=== PATIENT | male | born 1975 | race Caucasian/White ===

== ENCOUNTER 2016-10-25 20:57 | Inpatient (IN) | payer SELFPAY ==
[2016-10-25] MEDS ORDERED: ONDANSETRON 4 MG TAB.RAPDIS PO ONE (21:11)
--- NOTE | 2016-10-25 21:12 | ER Document Report ---
ED Medical Screen (RME) - General Chief Complaint: Abdominal Pain Stated Complaint: ABDOMINAL PAIN Mode of Arrival: Ambulatory Information source: Patient Notes: Patient presents to the emergency department with history of pancreatitis. Patient reports he's been drinking pretty heavily for the past couple months and recently quit on Sunday. He reports nausea vomiting abdominal pain. I have greeted and performed a rapid initial assessment of this patient. A comprehensive ED assessment and evaluation of the patient, analysis of test results and completion of the medical decision making process will be conducted by additional ED providers. Physical Exam - Vital signs Vitals: Temp Pulse Resp BP Pulse Ox 98.0 F 67 20 124/88 H 99 10/25/16 21:04 10/25/16 21:04 10/25/16 21:04 10/25/16 21:04 10/25/16 21:04 Course - Vital Signs Vital signs: Temp Pulse Resp BP Pulse Ox 98.0 F 67 20 124/88 H 99 10/25/16 21:04 10/25/16 21:04 10/25/16 21:04 10/25/16 21:04 10/25/16 21:04
[2016-10-25 22:11] LABS: ABSOLUTE LYMPHOCYTES (AUTO) 1.9 10^3/uL (0.5-4.7); ABSOLUTE MONOCYTES (AUTO) 1.1 10^3/uL (0.1-1.4); ABSOLUTE NEUT (AUTO) 6.3 10^3/uL (1.7-8.2); BASOPHILS % (AUTO) 0.3 % (0-2); EOSINOPHILS % (AUTO) 0.2 % (0-6); HEMOGLOBIN 16.5 g/dL (13.5-17.0); HGB HCT DIFFERENCE 0.5; LYMPHOCYTES % (AUTO) 20.4 % (13-45); MEAN CORPUSCULAR HEMOGLOBIN 30.6 pg (27.0-33.4); MEAN CORPUSCULAR HGB CONC 33.6 g/dL (32.0-36.0); MEAN CORPUSCULAR VOLUME 91 fl (80-97); MONOCYTES % (AUTO) 11.6 % (3-13); RED BLOOD COUNT 5.38 10^6/uL (4.35-5.55); RED CELL DISTRIBUTION WIDTH 14.2 % (11.5-14.0); SEGMENTED NEUTROPHILS % (AUTO) 67.5 % (42-78); WHITE BLOOD COUNT 9.3 10^3/uL (4.0-10.5)
[2016-10-25 22:18] LABS: APPEARANCE,URINE TURBID; BILIRUBIN,URINE SMALL (NEGATIVE); GLUCOSE, URINE NEGATIVE (NEGATIVE); KETONES,URINE TRACE mg/dL (NEGATIVE); LEUKOCYTE ESTERASE,URINE TRACE (NEGATIVE); NITRITE,URINE NEGATIVE (NEGATIVE); PROTEIN,URINE >=500 mg/dL (NEGATIVE); URINE SPECIFIC GRAVITY 1.033; UROBILINOGEN,URINE NEGATIVE mg/dL (<2.0)
[2016-10-25 22:32] LABS: BILIRUBIN,TOTAL 1.2 mg/dL (0.2-1.3); BLOOD UREA NITROGEN 38 mg/dL (7-20); CREATININE RESULT 2.01 mg/dL (0.52-1.25); GLUCOSE 195 mg/dL (75-110); TOTAL PROTEIN 10.2 g/dL (6.3-8.2)
[2016-10-25 22:34] LABS: ALANINE AMINOTRANSFERASE 60 U/L (21-72); ALKALINE PHOSPHATASE 85 U/L (38-126); ASPARTATE AMINO TRANSFERASE 91 U/L (17-59)
[2016-10-25 22:41] LABS: CARBON DIOXIDE 28 mmol/L (22-30); CHLORIDE 85 mmol/L (98-107); POTASSIUM 3.5 mmol/L (3.6-5.0); SODIUM 137.5 mmol/L (137-145)
[2016-10-25 23:09] LABS: LIPASE 2109.9 U/L (23-300)
[2016-10-25 23:11] LABS: ANION GAP 25 (5-19)
[2016-10-26] MEDS ORDERED: DEXTROSE 5%-NORMAL SALINE 1,000 ML IV ONE (00:17)
[2016-10-26] MEDS ORDERED: RINGERS SOLUTION,LACTATED 2,000 ML IV ONE (00:18)
[2016-10-26 00:25] LABS: ADD ON TESTING BLD IN LAB ACKNOWLEDGE
[2016-10-26 00:37] LABS: LDH 596 U/L (313-618)
[2016-10-26 00:49] LABS: ALCOHOL < 10 mg/dL (NONE DETECTED)
[2016-10-26 00:51] LABS: VENOUS BLOOD BASE EXCESS 9.8 mmol/L; VENOUS BLOOD HCO3 31.6 mmol/L (20-32); VENOUS BLOOD PCO2 33.7 mmHg (35-63); VENOUS BLOOD PH 7.59 (7.30-7.42)
[2016-10-26] MEDS: MORPHINE SULFATE 10 MG/ML INJ IV PRN ×4 (00:56→16:36)
[2016-10-26] MEDS ORDERED: ONDANSETRON HCL INJ/PF 4 MG/2 ML SDV ONE (01:02)
[2016-10-26] MEDS ORDERED: ONDANSETRON HCL INJ/PF 4 MG/2 ML SDV IV PRN (01:11)
[2016-10-26] MEDS ORDERED: IPRATROPIUM/ALBUTEROL 0.5-2.5 MG/3 ML AMPUL NEB PRN (01:11)
[2016-10-26] MEDS ORDERED: ACETAMINOPHEN 325 MG TABLET PO PRN (01:11)
--- NOTE | 2016-10-26 01:11 | ER Document Report ---
ED General - General Chief Complaint: Abdominal Pain Stated Complaint: ABDOMINAL PAIN Mode of Arrival: Ambulatory Notes: Patient is a 41-year-old male with past medical history of chronic alcohol abuse and pancreatitis who presents with 4 days of inability to tolerate oral intake including water. States he stopped drinking alcohol 4 days ago due to "not liking my life" but also due to the fact that drinking worsened his epigastric abdominal pain. States this feels very similar to when he said pancreatitis in the past and he has required admission for almost cases. Last drink was 4 days ago. Does describe the pain in his abdomen is being located in the epigastrium, worsening since onset, severe and sharp in nature. Nothing improves or worsens the pain. He has not seen his primary care physician regarding today's concern. He has not had any diarrhea melena, or hematochezia TRAVEL OUTSIDE OF THE [place] IN LAST 30 DAYS: No - Related Data Allergies/Adverse Reactions: No Known Allergies Allergy (Verified 10/26/16 01:28) Home Medications: Current Home Medications No Home Medications 10/26/16 [History] Past Medical History - General Information source: Patient - Social History Smoking Status: Never Smoker Chew tobacco use (# tins/day): No Frequency of alcohol use: Heavy Drug Abuse: None Family History: Reviewed & Not Pertinent Patient has suicidal ideation: No Patient has homicidal ideation: No Renal/ Medical History: Denies: Hx Peritoneal Dialysis Review of Systems - Review of Systems Notes: Constitutional: Negative for fever. HENT: Negative for sore throat. Eyes: Negative for visual changes. Cardiovascular: Negative for chest pain. Respiratory: Negative for shortness of breath. Gastrointestinal: Positive for abdominal pain, vomiting, negative for diarrhea. Genitourinary: Negative for dysuria. Musculoskeletal: Negative for back pain. Skin: Negative for rash. Neurological: Negative for headaches, weakness or numbness. 10 point ROS negative except as marked above and in HPI. Physical Exam - Vital signs Vitals: Temp Pulse Resp BP Pulse Ox 98.0 F 67 20 124/88 H 99 10/25/16 21:04 10/25/16 21:04 10/25/16 21:04 10/25/16 21:04 10/25/16 21:04 Interpretation: Normal Notes: PHYSICAL EXAMINATION: GENERAL: Moderately ill in appearance but in no acute distress. HEAD: Atraumatic, normocephalic. EYES: Pupils equal round and reactive to light, extraocular movements intact, sclera anicteric, conjunctiva are normal. ENT: nares patent, oropharynx clear without exudates. Dry mucous membranes. NECK: Normal range of motion, supple without lymphadenopathy LUNGS: Breath sounds clear to auscultation bilaterally and equal. No wheezes rales or rhonchi. HEART: Regular rate and rhythm without murmurs ABDOMEN: Soft, epigastric and left upper quadrant abdominal tenderness on palpation. Voluntary guarding. No rebound. No organomegaly EXTREMITIES: Normal range of motion, no pitting or edema. No cyanosis. NEUROLOGICAL: No focal neurological deficits. Moves all extremities spontaneously and on command. PSYCH: Normal mood, normal affect. SKIN: Warm, Dry, normal turgor, no rashes or lesions noted. Course - Re-evaluation Re-evalutation: 10/26/16 04:10 Presentation is consistent with acute pancreatitis with lab findings consistent with acute kidney injury secondary to repeated episodes of vomiting. Hypokalemia and alkalosis consistent with repeated vomiting. Lactate and LDH normal. No white count. I do not suspect an acute biliary pathology as patient is a clear history of chronic alcohol abuse is likely trigger for his acute pancreatitis. Patient is somewhat ill in appearance but in no acute distress. Based on exam, vitals and labs patient will require admission for acute pancreatitis. IV fluids and antiemetics have been administered. I spoke with the hospitalist Dr. Yoandy Kapoor will admit - Vital Signs Vital signs: Temp Pulse Resp BP Pulse Ox 98.4 F 67 18 139/101 H 99 10/26/16 03:06 10/25/16 21:04 10/26/16 03:07 10/26/16 03:01 10/26/16 03:01 - Laboratory Result Diagrams: 10/25/16 21:32 10/25/16 21:32 Laboratory results interpreted by me: 10/25/16 10/25/16 10/25/16 21:32 21:32 21:32 RDW 14.2 H VBG pH VBG pCO2 Potassium 3.5 L Chloride 85 L Anion Gap 25 H BUN 38 H Creatinine 2.01 H Est GFR ( Amer) 45 L Est GFR (Non-Af Amer) 37 L Glucose 195 H Calcium 12.0 H* AST 91 H Total Protein 10.2 H Albumin 6.0 H Lipase 2109.9 H Urine Protein >=500 H Urine Ketones TRACE H Urine Bilirubin SMALL H Ur Leukocyte Esterase TRACE H 10/26/16 00:38 RDW VBG pH 7.59 H VBG pCO2 33.7 L Potassium Chloride Anion Gap BUN Creatinine Est GFR ( Amer) Est GFR (Non-Af Amer) Glucose Calcium AST Total Protein Albumin Lipase Urine Protein Urine Ketones Urine Bilirubin Ur Leukocyte Esterase Discharge - Discharge Clinical Impression: Acute kidney injury, Alkalosis Acute pancreatitis Qualifiers: Pancreatitis type: alcohol induced Acute pancreatitis complication: unspecified Qualified Code(s): K85.20 - Alcohol induced acute pancreatitis without necrosis or infection Condition: Fair Disposition: ADMITTED INPATIENT Admitting Provider: [facility] Admitted: Telemetry
[2016-10-26] MEDS ORDERED: LORAZEPAM INJ 2 MG/1 ML VIAL IV PRN (01:15)
[2016-10-26] MEDS ORDERED: MORPHINE SULFATE 10 MG/ML INJ IV PRN (01:15)
[2016-10-26] MEDS ORDERED: FOLIC ACID INJ 5 MG/1 ML 10 ML VIAL IV PRN (02:37)
[2016-10-26] MEDS ORDERED: THIAMINE HCL INJ 200 MG/2 ML VIAL IV PRN (02:38)
[2016-10-26] MEDS ORDERED: THIAMINE HCL 100 MG, FOLIC ACID 1 MG in NORMAL SALINE 50 ML IV SCH ×2 (03:00→22:00)
[2016-10-26] MEDS: NORMAL SALINE 1000 ML 1,000 ML IV SCH ×2 (03:04→11:45)
[2016-10-26] MEDS: HEPARIN SOD (PORCINE) 5,000 UNIT/ML 1 ML SYRINGE SUBCUT SCH ×3 (05:20→21:24)
--- NOTE | 2016-10-26 05:59 | PDOC H&P ---
History of Present Illness Admission Date/PCP: 10/26/16 01:11 Patient complains of: Abdominal pain with nausea and vomiting History of Present Illness: NEY CARBAJAL is a 41 year old male with a past medical history of alcohol dependence and alcohol related pancreatitis who had been in his usual state of health until approximately 7 days ago had developed abdominal pain nausea vomiting and loose stools prompting him to discontinue alcohol consumption. But persistent abdominal pain and intolerant of by mouth prompting him to seek evaluation emergency room where his found to have an elevated lipase in the 2000 range and acute kidney injury. Patient denies any new medications and is otherwise without complaints. Past Medical History GI Medical History: Reports: Other - Alcohol-induced pancreatitis Psychiatric Medical History: Reports: Alcohol Dependency, Depression - pt not taking medication; doesn't like the way it makes him feel Social History Information Source: Patient Lives with: Alone Smoking Status: Never Smoker Frequency of Alcohol Use: Heavy Amount of Alcoholic Beverages Per Day: 1/5 of whiskey per day Last Alcohol Use: 10/21/16 Hx Recreational Drug Use: Yes Drugs: Marijuana Hx Prescription Drug Abuse: No - Advance Directive Resuscitation Status: Full Code Family History Family History: Other - Alcoholism Parental Family History Reviewed: Yes Children Family History Reviewed: Yes Sibling(s) Family History Reviewed.: Yes Medication/Allergy Home Medications: No Home Medications 10/26/16 Allergies/Adverse Reactions: No Known Allergies Allergy (Verified 10/26/16 01:28) Review of Systems Constitutional: PRESENT: anorexia, fatigue. ABSENT: chills, fever(s), headache( s), weight gain, weight loss Eyes: ABSENT: visual disturbances Ears: ABSENT: hearing changes Cardiovascular: ABSENT: chest pain, dyspnea on exertion, edema, orthropnea, palpitations Respiratory: ABSENT: cough, hemoptysis Gastrointestinal: PRESENT: abdominal pain, bloating, diarrhea, nausea, vomiting. ABSENT: constipation, hematemesis, hematochezia Genitourinary: ABSENT: dysuria, hematuria Musculoskeletal: ABSENT: joint swelling Integumentary: ABSENT: rash, wounds Neurological: ABSENT: abnormal gait, abnormal speech, confusion, dizziness, focal weakness, syncope Psychiatric: ABSENT: anxiety, depression, homidical ideation, suicidal ideation Endocrine: ABSENT: cold intolerance, heat intolerance, polydipsia, polyuria Hematologic/Lymphatic: ABSENT: easy bleeding, easy bruising Physical Exam Vital Signs: Temp Pulse Resp BP Pulse Ox 98.6 F 66 16 153/103 H 98 10/26/16 03:50 10/26/16 03:50 10/26/16 03:50 10/26/16 03:50 10/26/16 03:50 Intake & Output 10/24/16 10/25/16 10/26/16 11:59 11:59 11:59 Intake Total 1120 Balance 1120 Weight 64.4 kg General appearance: PRESENT: mild distress Head exam: PRESENT: atraumatic, normocephalic Eye exam: PRESENT: conjunctiva pink, EOMI, PERRLA. ABSENT: scleral icterus Ear exam: PRESENT: normal external ear exam Mouth exam: PRESENT: moist, tongue midline Neck exam: ABSENT: carotid bruit, JVD, lymphadenopathy, thyromegaly Respiratory exam: PRESENT: clear to auscultation [place]. ABSENT: rales, rhonchi, wheezes Cardiovascular exam: PRESENT: RRR. ABSENT: diastolic murmur, rubs, systolic murmur Pulses: PRESENT: normal dorsalis pedis pul Vascular exam: PRESENT: normal capillary refill GI/Abdominal exam: PRESENT: hyperactive bowel sounds, soft, tenderness. ABSENT : ascites, diminished bowel sounds, distended, firm, guarding, mass, Yeh's sign, normal bowel sounds, organolmegaly, rebound, rigid Rectal exam: PRESENT: deferred Extremities exam: PRESENT: full ROM. ABSENT: calf tenderness, clubbing, pedal edema Neurological exam: PRESENT: alert, awake, oriented to person, oriented to place , oriented to time, oriented to situation, CN II-XII grossly intact. ABSENT: motor sensory deficit Psychiatric exam: PRESENT: appropriate affect, normal mood. ABSENT: homicidal ideation, suicidal ideation Skin exam: PRESENT: dry, intact, warm. ABSENT: cyanosis, rash Assessment & Plan - Diagnosis (1) Acute pancreatitis Qualifiers: Pancreatitis type: alcohol induced Acute pancreatitis complication: unspecified Qualified Code(s): K85.20 - Alcohol induced acute pancreatitis without necrosis or infection Is this a current diagnosis for this admission?: YesPlan: IV fluid electrolyte repletion bowel rest and symptomatically management alcohol cessation (2) Acute kidney injury Is this a current diagnosis for this admission?: YesPlan: Likely prerenal azotemia IV fluid challenge reevaluation of chemistry avoiding nephrotoxic meds and doses (3) Alkalosis Is this a current diagnosis for this admission?: YesPlan: Contraction alkalosis please see #2 - Time Time Spent: 30 to 50 Minutes
[2016-10-26 06:43] LABS: URINE BARBITURATES SCREEN NEGATIVE; URINE METHADONE SCREEN NEGATIVE; URINE PHENCYCLIDINE SCREEN NEGATIVE
--- NOTE | 2016-10-26 10:51 | PDOC PROGRESS REPORT ---
Subjective Progress Note for:: 10/26/16 Subjective:: Complains of left upper quadrant pain. Physical Exam Vital Signs: Temp Pulse Resp BP Pulse Ox 98.4 F 58 L 16 128/86 H 100 10/26/16 07:37 10/26/16 07:37 10/26/16 07:37 10/26/16 07:37 10/26/16 07:37 Intake & Output 10/25/16 10/26/16 10/27/16 06:59 06:59 06:59 Intake Total 1170 Output Total 250 Balance 920 Weight 65.4 kg General appearance: PRESENT: no acute distress Eye exam: PRESENT: conjunctiva pink. ABSENT: scleral icterus Mouth exam: PRESENT: moist, tongue midline Respiratory exam: PRESENT: clear to auscultation [place]. ABSENT: rales, rhonchi, wheezes Cardiovascular exam: PRESENT: RRR. ABSENT: diastolic murmur, rubs, systolic murmur GI/Abdominal exam: PRESENT: normal bowel sounds, soft, tenderness - Left upper quadrant tenderness but no guarding or rebound.. ABSENT: distended, guarding, mass, organolmegaly, rebound Extremities exam: PRESENT: full ROM. ABSENT: calf tenderness, clubbing, pedal edema Neurological exam: PRESENT: alert, awake, oriented to person, oriented to place , oriented to time, oriented to situation, CN II-XII grossly intact. ABSENT: motor sensory deficit Psychiatric exam: PRESENT: appropriate affect Skin exam: PRESENT: other - Patient has most of his body covered in tattoos. Assessment & Plan - Diagnosis (1) Acute pancreatitis Qualifiers: Pancreatitis type: alcohol induced Acute pancreatitis complication: unspecified Qualified Code(s): K85.20 - Alcohol induced acute pancreatitis without necrosis or infection Is this a current diagnosis for this admission?: YesPlan: Patient has acute pancreatic Yaakov alcohol. We'll continue nothing by mouth and IV narcotics for pain control. (2) Acute kidney injury Is this a current diagnosis for this admission?: YesPlan: Most likely secondary to dehydration secondary to decreased by mouth intake. We 'll continue with IV fluids and monitor. (3) Hypothyroidism Is this a current diagnosis for this admission?: YesPlan: Will start on Synthroid once his home dose is known. (4) Insomnia Is this a current diagnosis for this admission?: YesPlan: Patient normally takes doxepin nightly and we'll find out what his home doses and start that. (5) Hypercalcemia Is this a current diagnosis for this admission?: YesPlan: This likely related to the acute kidney injury. Will repeat once he has had improvement in his renal function. - Time Time Spent with patient: 25-34 minutes - Inpatient Certification Medical Necessity: Need For IV Fluids
[2016-10-27] MEDS: MORPHINE SULFATE 10 MG/ML INJ IV PRN ×2 (03:18→07:27)
[2016-10-27] MEDS: HEPARIN SOD (PORCINE) 5,000 UNIT/ML 1 ML SYRINGE SUBCUT SCH ×2 (05:51→13:03)
[2016-10-27 07:28] LABS: ALANINE AMINOTRANSFERASE 73 U/L (21-72); ALKALINE PHOSPHATASE 81 U/L (38-126); ANION GAP 8 (5-19); ASPARTATE AMINO TRANSFERASE 143 U/L (17-59); BILIRUBIN,TOTAL 0.7 mg/dL (0.2-1.3); BLOOD UREA NITROGEN 26 mg/dL (7-20); CALCIUM 9.4 mg/dL (8.4-10.2); CARBON DIOXIDE 33 mmol/L (22-30); CHLORIDE 96 mmol/L (98-107); CREATININE RESULT 1.02 mg/dL (0.52-1.25); GLUCOSE 99 mg/dL (75-110); POTASSIUM 3.6 mmol/L (3.6-5.0); SODIUM 137.4 mmol/L (137-145); TOTAL PROTEIN 6.2 g/dL (6.3-8.2)
[2016-10-27] MEDS ORDERED: LORAZEPAM 1 MG TABLET PO PRN (08:10)
[2016-10-27] MEDS ORDERED: OXYCODONE HCL IR 5 MG TABLET PO PRN (08:11)
--- NOTE | 2016-10-27 11:00 | PDOC PROGRESS REPORT ---
Subjective Progress Note for:: 10/27/16 Subjective:: He reports much less pain today. Physical Exam Vital Signs: Temp Pulse Resp BP Pulse Ox 98.2 F 62 16 133/93 H 99 10/27/16 07:29 10/27/16 07:29 10/27/16 07:29 10/27/16 07:29 10/27/16 07:29 Intake & Output 10/26/16 10/27/16 10/28/16 06:59 06:59 06:59 Intake Total 1170 2188 Output Total 250 425 Balance 920 1763 Weight 65.4 kg General appearance: PRESENT: no acute distress Eye exam: PRESENT: conjunctiva pink. ABSENT: scleral icterus Mouth exam: PRESENT: moist, tongue midline Neck exam: ABSENT: JVD Respiratory exam: PRESENT: clear to auscultation [place]. ABSENT: rales, rhonchi, wheezes Cardiovascular exam: PRESENT: RRR. ABSENT: diastolic murmur, rubs, systolic murmur GI/Abdominal exam: PRESENT: normal bowel sounds, soft, tenderness - Mild left upper quadrant tenderness but no guarding or rebound.. ABSENT: distended, guarding, mass, organolmegaly, rebound Extremities exam: ABSENT: calf tenderness, clubbing, pedal edema Neurological exam: PRESENT: alert, awake, oriented to person, oriented to place , oriented to time, oriented to situation, CN II-XII grossly intact. ABSENT: motor sensory deficit Psychiatric exam: PRESENT: appropriate affect Skin exam: PRESENT: dry, intact, warm. ABSENT: cyanosis, rash Results Laboratory Results: 10/27/16 06:40 10/27/16 10/27/16 06:40 06:40 Sodium 137.4 Potassium 3.6 Chloride 96 L Carbon Dioxide 33 H Anion Gap 8 BUN 26 H Creatinine 1.02 Est GFR ( Amer) > 60 Est GFR (Non-Af Amer) > 60 Glucose 99 Calcium 9.4 Total Bilirubin 0.7 AST 143 H ALT 73 H Alkaline Phosphatase 81 Total Protein 6.2 L Albumin 4.0 Lipase 533.2 H Assessment & Plan - Diagnosis (1) Acute pancreatitis Qualifiers: Pancreatitis type: alcohol induced Acute pancreatitis complication: unspecified Qualified Code(s): K85.20 - Alcohol induced acute pancreatitis without necrosis or infection Is this a current diagnosis for this admission?: YesPlan: The patient is improving. We will stop his IV narcotics and give him oxycodone and tramadol full liquid diet today. If he tolerates we may be able to discharge home later today. (2) Acute kidney injury Is this a current diagnosis for this admission?: YesPlan: Resolved with IV fluids. It was secondary to dehydration (3) Hypothyroidism Is this a current diagnosis for this admission?: Yes (4) Insomnia Is this a current diagnosis for this admission?: Yes (5) Hypercalcemia Is this a current diagnosis for this admission?: YesPlan: Resolved with IV fluids. - Time Time Spent with patient: 25-34 minutes - Inpatient Certification Medical Necessity: Need For IV Fluids - Plan Summary Plan Summary: We'll start on a diet today. If he is able to tolerate we may discharge home later today but if he cannot tolerate we probably will discharge home tomorrow.
[2016-10-27 13:05] VITALS: BP 153/103
--- NOTE | 2016-10-30 15:27 | PDOC DISCHARGE SUMMARY ---
General - Admit/Disc Date/PCP Admission Date/Primary Care Provider: 10/26/16 01:11 Discharge Date: 10/27/16 - Discharge Diagnosis (1) Acute pancreatitis Is this a current diagnosis for this admission?: YesSummary: Secondary to alcohol abuse (2) Acute kidney injury Is this a current diagnosis for this admission?: YesSummary: Secondary to dehydration. Resolved (3) Hypothyroidism Is this a current diagnosis for this admission?: Yes (4) Insomnia Is this a current diagnosis for this admission?: Yes (5) Hypercalcemia Is this a current diagnosis for this admission?: YesSummary: Resolved with IV fluids. - Additional Information Resuscitation Status: Full Code Discharge Diet: Regular Discharge Activity: Activity As Tolerated, Balance Activity w/Rest, Slowly Increase Activity Home Medications: Levothyroxine Sodium [Synthroid 0.05 mg Tablet] 0.05 mg PO DAILY #30 tablet Lorazepam [Ativan 1 mg Tablet] 1 mg PO Q4HP PRN #30 tablet 10/27/16 Oxycodone HCl [Oxy-Ir 5 mg Tablet] 5 mg PO Q4HP PRN #30 tablet 10/27/16 History of Present Illness History of Present Illness: NEY CARBAJAL is a 41 year old male with a history of alcohol abuse presented with left upper quadrant pain and was found to have pancreatitis. Patient admitted for IV pain medications and fluids. He is noted also to be in acute renal failure secondary to dehydration as he said symptoms for the last 3 days is been unable to eat or drink. Hospital Course Hospital Course: 41-year-old male who presented with acute renal failure pancreatitis. Patient recently was secondary to decreased by mouth intake for 3 days prior to admission. This was secondary to alcohol abuse. Patient was given IV fluids and IV narcotics and had complete resolution of his renal failure. Patient also had dramatic improvement in his pancreatitis pain he was able to tolerate liquid diet on the day of discharge and was discharged home in stable condition. Physical Exam Vital Signs: Temp Pulse Resp BP Pulse Ox 98.2 F 77 16 153/103 H 100 10/27/16 13:03 10/27/16 13:03 10/27/16 13:03 10/27/16 13:03 10/27/16 13:03 General appearance: PRESENT: no acute distress Eye exam: PRESENT: conjunctiva pink. ABSENT: scleral icterus Mouth exam: PRESENT: moist, tongue midline Neck exam: ABSENT: JVD Respiratory exam: PRESENT: clear to auscultation [place]. ABSENT: rales, rhonchi, wheezes Cardiovascular exam: PRESENT: RRR. ABSENT: diastolic murmur, rubs, systolic murmur GI/Abdominal exam: PRESENT: tenderness - Mild tenderness. Extremities exam: PRESENT: full ROM. ABSENT: calf tenderness, clubbing, pedal edema Neurological exam: PRESENT: alert, awake, oriented to person, oriented to place , oriented to time, oriented to situation Psychiatric exam: PRESENT: appropriate affect Skin exam: PRESENT: dry, intact, warm. ABSENT: cyanosis, rash Results Laboratory Results: 10/27/16 06:40 Qualifiers PATEINT BEING DISCHARGED WITH ANY OF THE FOLLOWING DIAGNOSIS?: No Plan Discharge Plan: Discharged home in stable condition. Patient is to go to Alcoholics Anonymous and quit drinking. Follow-up with primary care in 1-2 weeks. Time Spent: Less than 30 Minutes
== END 2016-10-27 13:40 | disposition home or self-care (01) | DRG 439 ==
LOC: EDBD → ER 20:57 → EH 10-26 01:11 → 3W 10-26 03:49
PROVIDERS: ADMIT Internal Medicine; ATTEND Internal Medicine
PROC: 3E0F73Z Introduction of Anti-inflammatory into Respiratory Tract, Via Natural or Artificial Opening (ICD-10-PCS; principal; 2016-10-26)
DX: K85.20 Alcohol induced acute pancreatitis without necrosis or infection (principal); N17.9 Acute kidney failure, unspecified; E87.3 Alkalosis; F10.20 Alcohol dependence, uncomplicated; E03.9 Hypothyroidism, unspecified; G47.00 Insomnia, unspecified; E83.52 Hypercalcemia; E86.0 Dehydration; F32.9 Major depressive disorder, single episode, unspecified; E87.6 Hypokalemia; Z81.1 Family history of alcohol abuse and dependence
CPT/HCPCS: 36415; 80053; 80307; 81001; 82803; 83605; 83615; 83690; 85025; 99285; J1644; J2270; J3411; J3490; J7030; J7120; S0119